=== PATIENT | male | born 1980 | race Caucasian/White ===

== ENCOUNTER → 2018-07-26 08:16 | Outpatient (CLI) | payer OTHER, SELFPAY ==
[2018-07-26 09:13] LABS: Alanine Aminotransferase 32 IU/L (21-72); Albumin 4.6 g/dL (3.5-5.0); Albumin Globulin Ratio 1.8 (1.0-2.8); Alkaline Phosphatase 41 U/L (38-126); Aspartate Aminotransferase 32 IU/L (17-59); BUN Creatinine Ratio 15.6 (6-22); Bilirubin Total 2.4 mg/dL (0.2-1.3); Blood Urea Nitrogen 14 mg/dL (9-20); Calcium 9.5 mg/dL (8.4-10.2); Carbon Dioxide 32 mmol/L (22-32); Chloride 103 mmol/L (98-107); Cholesterol 184 mg/dL (140-199); Estimated Glomerular Filt Rate > 60.0 mL/min (>60); Globulin 2.5 g/dL (1.7-4.1); Glucose 90 mg/dL (70-100); HDL Cholesterol 60 mg/dL (40-60); HEMOLYSIS < 15 (0-50); LDL Cholesterol Calculated 110 mg/dL (<100); Potassium 4.5 mmol/L (3.4-5.1); Sodium 144 mmol/L (137-145); Total Protein 7.1 g/dL (6.3-8.2); Triglycerides 69 mg/dL (35-150)
[2018-07-26 09:55] LABS: Free T4, Direct Thyroxine 1.42 ng/dL (0.78-2.19)
[2018-07-26 10:08] LABS: Thyroid Stimulating Hormone 0.39 uIU/mL (0.47-4.68)
== END ==
PROVIDERS: Family Provider Physician Assistant; PCP Physician Assistant; Visit Provider Physician Assistant
DX: I10 Essential (primary) hypertension (principal); E03.9 Hypothyroidism, unspecified
CPT/HCPCS: 36415; 80053; 80061; 84439; 84443

== ENCOUNTER → 2018-08-11 11:00 | Outpatient (CLI) | payer OTHER, SELFPAY | PROVIDERS: Family Provider Physician Assistant; PCP Physician Assistant | DX: Z23 Encounter for immunization (principal) | CPT/HCPCS: 90471; 90686 ==

== ENCOUNTER → 2019-03-07 08:28 | Outpatient (CLI) | payer OTHER, SELFPAY ==
[2019-03-07 10:02] LABS: Thyroid Stimulating Hormone 0.59 uIU/mL (0.47-4.68)
== END ==
PROVIDERS: Family Provider Physician Assistant; PCP Physician Assistant; Visit Provider Physician Assistant
DX: E03.9 Hypothyroidism, unspecified (principal)
CPT/HCPCS: 36415; 84443

== ENCOUNTER → 2019-08-30 11:57 | Outpatient (CLI) | payer OTHER, SELFPAY | PROVIDERS: PCP Physician Assistant | DX: Z23 Encounter for immunization (principal) | CPT/HCPCS: 90471; 90686 ==

== ENCOUNTER 2020-04-16 03:08 | Emergency (ER) | payer OTHER, SELFPAY ==
[2020-04-16] VITALS (34 sets, daily range): BP systolic 121–151; BP diastolic 68–100; PULSE 59–89; RESP 15–30; TEMP 36.7; O2SAT 97–99; BMI 25.0
--- NOTE | 2020-04-16 03:10 | ED.CHESTPAIN ---
HPI - Chest Pain <Fadi AlfordDO linwood - Last Filed: 04/19/20 01:03> General Chief Complaint: Chest Pain Stated Complaint: chest pain Time Seen by Provider: 04/16/20 03:09 Source: patient Mode of arrival: Ambulatory Limitations: no limitations History of Present Illness HPI narrative: 40M nonsmoker with history of essential HTN, hypothyroid, and thoracic outlet syndrome presents with anterior and retrosternal chest pressure and squeezing tightness that started a few hours prior to his arrival, perhaps as early as 11:30 p.m.. He states that he has had scenarios in the past where falling asleep in certain positions can irritate his thoracic outlet syndrome and present initially like this but usually will resolve with vigorous stretching and some time. It is never been this intense nor persistent. He denies any symptoms otherwise over the course of the day and felt in his normal state of health when he went to bed. He denies recent travel or injury. He denies any over exertional activities and states that he has no symptoms despite vigorous exercise frequently. He has had no runny nose, sore throat or cough. He denies nausea, vomiting or diarrhea. He feels increasingly short of breath. He denies any radiation of his discomfort. MD complaint: chest pain Onset (ago): hour(s) Duration: constant Onset: during rest Pain location: substernal Severity: moderate Quality: tightness and heaviness Pain radiation: none Relieving factors: nothing Exacerbating factors: nothing Associated symptoms: dyspnea Treatments prior to arrival chest pain: none Related Data Home Medications Medication Instructions Recorded Confirmed silver sulfadiazine 1 % topical 1 applictn TOP BID PRN gram 05/18/19 04/12/20 cream triamcinolone acetonide 0.1 % 1 applictn TOP BID PRN gram 05/18/19 04/12/20 topical ointment Previous Rx's Medication Instructions Recorded Synthroid 150 mcg tablet 150 mcg PO QAM #90 tab NS 11/06/19 amlodipine 5 mg tablet 5 mg PO QDAY #90 tab 11/06/19 methocarbamol 500 mg tablet 500 mg PO DAILY PRN #90 tab 04/12/20 colchicine 0.6 mg PO BID 90 Days #180 cap 04/16/20 Allergies Allergy/AdvReac Type Severity Reaction Status Date / Time No Known Drug Allergies Allergy Verified 04/12/20 09:31 Review of Systems <Fadi Valadez DO - Last Filed: 04/19/20 01:03> Constitutional Constitutional: Denies chills, Denies fatigue, Denies fever(s), Denies frequent falls, Denies lethargy and Denies weakness Eyes Eyes: Denies change in vision, Denies eye discharge, Denies irritation and Denies loss of vision ENT Ears, Nose, Mouth, and Throat: Denies change in voice, Denies dizziness, Denies neck pain, Denies sore throat and Denies throat swelling Cardiovascular Cardiovascular: Reports chest pain, Denies irregular heart rhythm, Denies lightheadedness, Denies palpitations, Reports dyspnea, Reports dyspnea on exertion and Denies orthopnea Respiratory Respiratory: Denies cough, Reports dyspnea, Reports dyspnea on exertion and Denies wheezing Gastrointestinal Gastrointestinal: Denies abdominal pain, Denies change in bowel habits, Denies diarrhea, Denies nausea and Denies vomiting Genitourinary Genitourinary: Denies hematuria, Denies flank pain, Denies urinary incontinence and Denies urinary urgency Musculoskeletal Musculoskeletal: Denies back pain, Denies muscle weakness, Denies neck pain, Denies numbness and Denies tingling Integumentary/Breasts Skin/Breast: Denies pruritus, Denies erythema, Denies rash and Denies wounds Neurologic Neurologic: Denies behavioral changes, Denies confusion, Denies dizziness, Denies frequent falls, Denies loss of vision, Denies numbness, Denies tingling and Denies weakness Psychiatric Psychiatric: Denies anxiety, Denies behavioral changes, Denies confusion, Denies depression, Denies homicidal ideation and Denies suicidal ideation Endocrine Endocrine: Denies fatigue, Denies flushing and Denies palpitations Hematologic/Lymphatic Hematologic/Lymphatic: Denies easy bruising Allergic/Immunologic Allergic/Immunologic: Denies urticaria, Denies throat swelling and Denies wheezing Patient History <Fadi Valadez DO - Last Filed: 04/19/20 01:03> Social History Smoking Status: Never smoker second hand exposure: No alcohol intake: current (Beer about 4x a week) substance use type: does not use Smoking Status: Never smoker Exam <Fadi Valadez DO - Last Filed: 04/19/20 01:03> Narrative Exam Narrative: GENERAL: [40] year old patient appears stated age. Well-nourished, well-developed patient, in mild distress. Visibly anxious, some difficulty completing full sentences HEAD: Atraumatic. Normocephalic. EYES: Pupils equal round and reactive. Extraocular motions intact. No scleral icterus. No injection or drainage. ENT: Nose without bleeding, purulent drainage. Throat without erythema, tonsillar hypertrophy or exudate. Airway patent. NECK: Trachea midline. Non tender CARDIOVASCULAR: Regular rate and rhythm without murmurs, gallops, or rubs. RESPIRATORY: Clear to auscultation. Breath sounds equal bilaterally. No wheezes, rales, or rhonchi. GASTROINTESTINAL: Abdomen soft, non-tender, nondistended. EXTREMITIES: No edema or joint tenderness. BACK: Nontender without deformity or crepitance. No flank tenderness. NEURO: AOx3. SKIN: No rash or erythema of visible areas Initial Vital Signs Initial Vital Signs: Vital Signs Temperature 98.1 F 04/16/20 03:12 Pulse Rate 82 04/16/20 03:12 Respiratory Rate 18 04/16/20 03:12 Blood Pressure 151/100 H 04/16/20 03:12 Pulse Oximetry 98 04/16/20 03:12 <Hector Garcia DO - Last Filed: 04/16/20 13:39> Initial Vital Signs Initial Vital Signs: Vital Signs Temperature 98.1 F 04/16/20 03:12 Pulse Rate 82 04/16/20 03:12 Respiratory Rate 18 04/16/20 03:12 Blood Pressure 151/100 H 04/16/20 03:12 Pulse Oximetry 98 04/16/20 03:12 Course <Fadi Valadez DO - Last Filed: 04/19/20 01:03> Course Course Narrative: patient case/plan discussed with Dr. Garcia and he will assume care and coordinate final disposition. Orders Ordered: Discontinued Medications Colchicine (Colcrys) 0.6 mg PO NOW ONE Stop: 04/16/20 06:08 Last Admin: 04/16/20 06:56 Dose: 0.6 mg Documented by: FRIEDA [place] Hydrox/Mg Hydrox/Simethicone 20 ml/ Lidocaine HCl 15 ml 0 ml PO NOW ONE Stop: 04/16/20 04:11 Last Admin: 04/16/20 05:39 Dose: 35 ml Documented by: FRIEDA Sodium Chloride (Normal Saline 0.9%) 1,000 mls @ 150 mls/hr IV CONT APRIL Last Infusion: 04/16/20 11:42 Dose: 0 mls/hr Documented by: Admin: 04/16/20 03:40 Dose: 150 mls/hr Documented by: FRIEDA Ketorolac Tromethamine (Toradol) 15 mg IV NOW ONE Stop: 04/16/20 03:28 Last Admin: 04/16/20 03:39 Dose: 15 mg Documented by: FRIEDA Nitroglycerin (Nitrostat) 0.4 mg SL [id number] PRN PRN Reason: Chest Pain Last Admin: 04/16/20 03:49 Dose: 0.4 mg Documented by: Admin: 04/16/20 03:41 Dose: 0.4 mg Documented by: FRIEDA Consultations Consultation #1: call to cardio to review case. Likely pericarditis, Dr. Almeida will help coordinate echo in ED, if normal then treat for pericarditis, if not then admit vs. transfer Vital Signs Vital signs: Vital Signs - 8 hr 04/16/20 05:43 04/16/20 05:50 04/16/20 06:00 Pulse Rate 76 72 73 Respiratory Rate 30 H 25 H 26 H Blood Pressure Blood Pressure [Right Arm] 137/76 143/86 H 147/87 H Pulse Oximetry 99 99 99 04/16/20 06:10 04/16/20 06:20 04/16/20 06:30 Pulse Rate 67 70 70 Respiratory Rate 20 20 22 Blood Pressure Blood Pressure [Right Arm] 140/80 140/79 144/84 H Pulse Oximetry 97 97 97 04/16/20 06:40 04/16/20 06:50 04/16/20 07:00 Pulse Rate 74 67 68 Respiratory Rate 17 20 20 Blood Pressure Blood Pressure [Right Arm] 143/85 H 141/80 H 141/85 H Pulse Oximetry 97 97 97 04/16/20 07:10 04/16/20 07:20 04/16/20 07:30 Pulse Rate 68 70 69 Respiratory Rate 20 19 15 Blood Pressure Blood Pressure [Right Arm] 145/80 H 138/76 142/78 H Pulse Oximetry 97 97 97 04/16/20 07:40 04/16/20 07:50 04/16/20 08:00 Pulse Rate 69 68 73 Respiratory Rate 21 20 22 Blood Pressure Blood Pressure [Right Arm] 139/77 140/78 121/68 Pulse Oximetry 97 98 97 04/16/20 09:00 04/16/20 09:10 04/16/20 09:20 Pulse Rate 72 70 72 Respiratory Rate 16 23 23 Blood Pressure Blood Pressure [Right Arm] 137/81 141/78 H 142/84 H Pulse Oximetry 98 99 04/16/20 09:30 04/16/20 09:40 04/16/20 09:50 Pulse Rate 64 64 59 L Respiratory Rate 20 19 16 Blood Pressure Blood Pressure [Right Arm] 128/79 130/74 137/74 Pulse Oximetry 99 98 97 04/16/20 10:00 04/16/20 10:10 04/16/20 10:20 Pulse Rate 65 65 62 Respiratory Rate 19 17 20 Blood Pressure Blood Pressure [Right Arm] 134/74 135/76 138/74 Pulse Oximetry 97 97 97 04/16/20 10:30 04/16/20 11:16 04/16/20 12:52 Pulse Rate 61 63 67 Respiratory Rate 17 21 19 Blood Pressure Blood Pressure [Right Arm] 134/71 140/81 140/85 Pulse Oximetry 97 99 97 04/16/20 13:01 Pulse Rate 65 Respiratory Rate 16 Blood Pressure 144/92 H Blood Pressure [Right Arm] Pulse Oximetry 98 <Hector Garcia DO - Last Filed: 04/16/20 13:39> Orders Ordered: Discontinued Medications Colchicine (Colcrys) 0.6 mg PO NOW ONE Stop: 04/16/20 06:08 Last Admin: 04/16/20 06:56 Dose: 0.6 mg Documented by: FRIEDA Al Hydrox/Mg Hydrox/Simethicone 20 ml/ Lidocaine HCl 15 ml 0 ml PO NOW ONE Stop: 04/16/20 04:11 Last Admin: 04/16/20 05:39 Dose: 35 ml Documented by: FRIEDA Sodium Chloride (Normal Saline 0.9%) 1,000 mls @ 150 mls/hr IV CONT APRIL Last Infusion: 04/16/20 11:42 Dose: 0 mls/hr Documented by: Admin: 04/16/20 03:40 Dose: 150 mls/hr Documented by: FRIEDA Ketorolac Tromethamine (Toradol) 15 mg IV NOW ONE Stop: 04/16/20 03:28 Last Admin: 04/16/20 03:39 Dose: 15 mg Documented by: FRIEDA Nitroglycerin (Nitrostat) 0.4 mg SL [id number] PRN PRN Reason: Chest Pain Last Admin: 04/16/20 03:49 Dose: 0.4 mg Documented by: Admin: 04/16/20 03:41 Dose: 0.4 mg Documented by: FRIEDA Vital Signs Vital signs: Vital Signs - 8 hr 04/16/20 05:43 04/16/20 05:50 04/16/20 06:00 Pulse Rate 76 72 73 Respiratory Rate 30 H 25 H 26 H Blood Pressure Blood Pressure [Right Arm] 137/76 143/86 H 147/87 H Pulse Oximetry 99 99 99 04/16/20 06:10 04/16/20 06:20 04/16/20 06:30 Pulse Rate 67 70 70 Respiratory Rate 20 20 22 Blood Pressure Blood Pressure [Right Arm] 140/80 140/79 144/84 H Pulse Oximetry 97 97 97 04/16/20 06:40 04/16/20 06:50 04/16/20 07:00 Pulse Rate 74 67 68 Respiratory Rate 17 20 20 Blood Pressure Blood Pressure [Right Arm] 143/85 H 141/80 H 141/85 H Pulse Oximetry 97 97 97 04/16/20 07:10 04/16/20 07:20 04/16/20 07:30 Pulse Rate 68 70 69 Respiratory Rate 20 19 15 Blood Pressure Blood Pressure [Right Arm] 145/80 H 138/76 142/78 H Pulse Oximetry 97 97 97 04/16/20 07:40 04/16/20 07:50 04/16/20 08:00 Pulse Rate 69 68 73 Respiratory Rate 21 20 22 Blood Pressure Blood Pressure [Right Arm] 139/77 140/78 121/68 Pulse Oximetry 97 98 97 04/16/20 09:00 04/16/20 09:10 04/16/20 09:20 Pulse Rate 72 70 72 Respiratory Rate 16 23 23 Blood Pressure Blood Pressure [Right Arm] 137/81 141/78 H 142/84 H Pulse Oximetry 98 99 04/16/20 09:30 04/16/20 09:40 04/16/20 09:50 Pulse Rate 64 64 59 L Respiratory Rate 20 19 16 Blood Pressure Blood Pressure [Right Arm] 128/79 130/74 137/74 Pulse Oximetry 99 98 97 04/16/20 10:00 04/16/20 10:10 04/16/20 10:20 Pulse Rate 65 65 62 Respiratory Rate 19 17 20 Blood Pressure Blood Pressure [Right Arm] 134/74 135/76 138/74 Pulse Oximetry 97 97 97 04/16/20 10:30 04/16/20 11:16 04/16/20 12:52 Pulse Rate 61 63 67 Respiratory Rate 17 21 19 Blood Pressure Blood Pressure [Right Arm] 134/71 140/81 140/85 Pulse Oximetry 97 99 97 04/16/20 13:01 Pulse Rate 65 Respiratory Rate 16 Blood Pressure 144/92 H Blood Pressure [Right Arm] Pulse Oximetry 98 MDM - Chest Pain <Fadi Valadez DO - Last Filed: 04/19/20 01:03> Lab Data Result diagrams: 04/16/20 03:25 04/16/20 03:25 Labs: Lab Results 04/16/20 04/16/20 04/16/20 Range/Units 03:25 03:25 03:25 WBC 8.3 (4.5-11.0) X10^3/uL RBC 5.05 (4.5-5.9) X10^6/uL Hgb 16.8 (13.5-17.5) g/dL Hct 46.9 (41-53) % MCV 93.0 (80-100) fL MCH 33.3 (26-34) PG MCHC 35.8 (30-36) % RDW 12.4 (11.6-14.8) % Plt Count 163 (150-400) X10^3/uL Neut % (Auto) 66.6 (50-75) % Lymph % (Auto) 21.7 L (25-40) % [place] % (Auto) 8.7 (3-14) % Eos % (Auto) 2.6 (2-4) % Baso % (Auto) 0.4 (0-2) % Neut # (Auto) 5500 (9534-5352) /uL Lymph # (Auto) 1800 (2167-9027) /uL [place] # (Auto) 700 (0-900) /uL Eos # (Auto) 200 (0-450) /uL Baso # (Auto) 0 (0-100) /uL ESR (0-15) MM/HR D-Dimer < 200 (<230) ng/mL Sodium 139 (137-145) mmol/L Potassium 4.2 (3.4-5.1) mmol/L Chloride 102 (98-107) mmol/L Carbon Dioxide 29 (22-32) mmol/L BUN 16 (9-20) mg/dL Creatinine 0.96 (0.66-1.25) mg/dL Estimated GFR > 60.0 (>60) mL/min BUN/Creatinine Ratio 16.7 (6-22) Glucose 103 H (70-100) mg/dL Calcium 9.2 (8.4-10.2) mg/dL Total Bilirubin 1.6 H (0.2-1.3) mg/dL AST 38 (17-59) IU/L ALT 26 (<50) IU/L Alkaline Phosphatase 41 (38-126) U/L Total Creatine Kinase 220 H (55-170) U/L CK-MB (CK-2) 2.53 H (<2.37) ng/mL CK-MB (CK-2) Rel Index 1.2 L (1.5-5.0) % Troponin I < 0.012 (0.01-0.034) ng/mL C-Reactive Protein (<1.0) mg/dL Total Protein 7.4 (6.3-8.2) g/dL Albumin 4.8 (3.5-5.0) g/dL Globulin 2.6 (1.7-4.1) g/dL Albumin/Globulin Ratio 1.8 (1.0-2.8) Lipase 135 (23-300) U/L 04/16/20 04/16/20 04/16/20 Range/Units 05:23 09:19 09:19 WBC (4.5-11.0) X10^3/uL RBC (4.5-5.9) X10^6/uL Hgb (13.5-17.5) g/dL Hct (41-53) % MCV (80-100) fL MCH (26-34) PG MCHC (30-36) % RDW (11.6-14.8) % Plt Count (150-400) X10^3/uL Neut % (Auto) (50-75) % Lymph % (Auto) (25-40) % [place] % (Auto) (3-14) % Eos % (Auto) (2-4) % Baso % (Auto) (0-2) % Neut # (Auto) (9577-0108) /uL Lymph # (Auto) (2628-7171) /uL [place] # (Auto) (0-900) /uL Eos # (Auto) (0-450) /uL Baso # (Auto) (0-100) /uL ESR 1 (0-15) MM/HR D-Dimer (<230) ng/mL Sodium (137-145) mmol/L Potassium (3.4-5.1) mmol/L Chloride (98-107) mmol/L Carbon Dioxide (22-32) mmol/L BUN (9-20) mg/dL Creatinine (0.66-1.25) mg/dL Estimated GFR (>60) mL/min BUN/Creatinine Ratio (6-22) Glucose (70-100) mg/dL Calcium (8.4-10.2) mg/dL Total Bilirubin (0.2-1.3) mg/dL AST (17-59) IU/L ALT (<50) IU/L Alkaline Phosphatase (38-126) U/L Total Creatine Kinase (55-170) U/L CK-MB (CK-2) (<2.37) ng/mL CK-MB (CK-2) Rel Index (1.5-5.0) % Troponin I < 0.012 (0.01-0.034) ng/mL C-Reactive Protein < 0.5 (<1.0) mg/dL Total Protein (6.3-8.2) g/dL Albumin (3.5-5.0) g/dL Globulin (1.7-4.1) g/dL Albumin/Globulin Ratio (1.0-2.8) Lipase (23-300) U/L // Range/Units 09:19 WBC (4.5-11.0) X10^3/uL RBC (4.5-5.9) X10^6/uL Hgb (13.5-17.5) g/dL Hct (41-53) % MCV (80-100) fL MCH (26-34) PG MCHC (30-36) % RDW (11.6-14.8) % Plt Count (150-400) X10^3/uL Neut % (Auto) (50-75) % Lymph % (Auto) (25-40) % [place] % (Auto) (3-14) % Eos % (Auto) (2-4) % Baso % (Auto) (0-2) % Neut # (Auto) (6206-4298) /uL Lymph # (Auto) (0807-0667) /uL [place] # (Auto) (0-900) /uL Eos # (Auto) (0-450) /uL Baso # (Auto) (0-100) /uL ESR (0-15) MM/HR D-Dimer (<230) ng/mL Sodium (137-145) mmol/L Potassium (3.4-5.1) mmol/L Chloride (98-107) mmol/L Carbon Dioxide (22-32) mmol/L BUN (9-20) mg/dL Creatinine (0.66-1.25) mg/dL Estimated GFR (>60) mL/min BUN/Creatinine Ratio (6-22) Glucose (70-100) mg/dL Calcium (8.4-10.2) mg/dL Total Bilirubin (0.2-1.3) mg/dL AST (17-59) IU/L ALT (<50) IU/L Alkaline Phosphatase (38-126) U/L Total Creatine Kinase (55-170) U/L CK-MB (CK-2) (<2.37) ng/mL CK-MB (CK-2) Rel Index (1.5-5.0) % Troponin I < 0.012 (0.01-0.034) ng/mL C-Reactive Protein (<1.0) mg/dL Total Protein (6.3-8.2) g/dL Albumin (3.5-5.0) g/dL Globulin (1.7-4.1) g/dL Albumin/Globulin Ratio (1.0-2.8) Lipase (23-300) U/L Imaging Data Chest x-ray: My Impression: no acute process CT scan - chest: Radiologist's Impression: No PE or dissection. No pneumonia. Trace pericardial effusion ECG Data Attestation: I personally reviewed and interpreted this ECG as follows: Prior ECG tracings: not available for review Interpretation: 1. NSR. No ectopy. Mild interventricular conduction delay. T Wave inversion Lead III. 2. No change 3. NSR. No Ectopy. Minimal ST elevations widespread with associated AK depressions consistent with pericarditis <Hector Garcia DO - Last Filed: 04/16/20 13:39> Lab Data Labs: Lab Results 04/16/20 04/16/20 04/16/20 Range/Units 03:25 03:25 03:25 WBC 8.3 (4.5-11.0) X10^3/uL RBC 5.05 (4.5-5.9) X10^6/uL Hgb 16.8 (13.5-17.5) g/dL Hct 46.9 (41-53) % MCV 93.0 (80-100) fL MCH 33.3 (26-34) PG MCHC 35.8 (30-36) % RDW 12.4 (11.6-14.8) % Plt Count 163 (150-400) X10^3/uL Neut % (Auto) 66.6 (50-75) % Lymph % (Auto) 21.7 L (25-40) % [place] % (Auto) 8.7 (3-14) % Eos % (Auto) 2.6 (2-4) % Baso % (Auto) 0.4 (0-2) % Neut # (Auto) 5500 (7391-3362) /uL Lymph # (Auto) 1800 (5469-7919) /uL [place] # (Auto) 700 (0-900) /uL Eos # (Auto) 200 (0-450) /uL Baso # (Auto) 0 (0-100) /uL ESR (0-15) MM/HR D-Dimer < 200 (<230) ng/mL Sodium 139 (137-145) mmol/L Potassium 4.2 (3.4-5.1) mmol/L Chloride 102 (98-107) mmol/L Carbon Dioxide 29 (22-32) mmol/L BUN 16 (9-20) mg/dL Creatinine 0.96 (0.66-1.25) mg/dL Estimated GFR > 60.0 (>60) mL/min BUN/Creatinine Ratio 16.7 (6-22) Glucose 103 H (70-100) mg/dL Calcium 9.2 (8.4-10.2) mg/dL Total Bilirubin 1.6 H (0.2-1.3) mg/dL AST 38 (17-59) IU/L ALT 26 (<50) IU/L Alkaline Phosphatase 41 (38-126) U/L Total Creatine Kinase 220 H (55-170) U/L CK-MB (CK-2) 2.53 H (<2.37) ng/mL CK-MB (CK-2) Rel Index 1.2 L (1.5-5.0) % Troponin I < 0.012 (0.01-0.034) ng/mL C-Reactive Protein (<1.0) mg/dL Total Protein 7.4 (6.3-8.2) g/dL Albumin 4.8 (3.5-5.0) g/dL Globulin 2.6 (1.7-4.1) g/dL Albumin/Globulin Ratio 1.8 (1.0-2.8) Lipase 135 (23-300) U/L 04/16/20 04/16/20 04/16/20 Range/Units 05:23 09:19 09:19 WBC (4.5-11.0) X10^3/uL RBC (4.5-5.9) X10^6/uL Hgb (13.5-17.5) g/dL Hct (41-53) % MCV (80-100) fL MCH (26-34) PG MCHC (30-36) % RDW (11.6-14.8) % Plt Count (150-400) X10^3/uL Neut % (Auto) (50-75) % Lymph % (Auto) (25-40) % [place] % (Auto) (3-14) % Eos % (Auto) (2-4) % Baso % (Auto) (0-2) % Neut # (Auto) (8818-3163) /uL Lymph # (Auto) (9934-5108) /uL [place] # (Auto) (0-900) /uL Eos # (Auto) (0-450) /uL Baso # (Auto) (0-100) /uL ESR 1 (0-15) MM/HR D-Dimer (<230) ng/mL Sodium (137-145) mmol/L Potassium (3.4-5.1) mmol/L Chloride (98-107) mmol/L Carbon Dioxide (22-32) mmol/L BUN (9-20) mg/dL Creatinine (0.66-1.25) mg/dL Estimated GFR (>60) mL/min BUN/Creatinine Ratio (6-22) Glucose (70-100) mg/dL Calcium (8.4-10.2) mg/dL Total Bilirubin (0.2-1.3) mg/dL AST (17-59) IU/L ALT (<50) IU/L Alkaline Phosphatase (38-126) U/L Total Creatine Kinase (55-170) U/L CK-MB (CK-2) (<2.37) ng/mL CK-MB (CK-2) Rel Index (1.5-5.0) % Troponin I < 0.012 (0.01-0.034) ng/mL C-Reactive Protein < 0.5 (<1.0) mg/dL Total Protein (6.3-8.2) g/dL Albumin (3.5-5.0) g/dL Globulin (1.7-4.1) g/dL Albumin/Globulin Ratio (1.0-2.8) Lipase (23-300) U/L 04/16/20 Range/Units 09:19 WBC (4.5-11.0) X10^3/uL RBC (4.5-5.9) X10^6/uL Hgb (13.5-17.5) g/dL Hct (41-53) % MCV (80-100) fL MCH (26-34) PG MCHC (30-36) % RDW (11.6-14.8) % Plt Count (150-400) X10^3/uL Neut % (Auto) (50-75) % Lymph % (Auto) (25-40) % [place] % (Auto) (3-14) % Eos % (Auto) (2-4) % Baso % (Auto) (0-2) % Neut # (Auto) (4855-0861) /uL Lymph # (Auto) (8913-5109) /uL [place] # (Auto) (0-900) /uL Eos # (Auto) (0-450) /uL Baso # (Auto) (0-100) /uL ESR (0-15) MM/HR D-Dimer (<230) ng/mL Sodium (137-145) mmol/L Potassium (3.4-5.1) mmol/L Chloride (98-107) mmol/L Carbon Dioxide (22-32) mmol/L BUN (9-20) mg/dL Creatinine (0.66-1.25) mg/dL Estimated GFR (>60) mL/min BUN/Creatinine Ratio (6-22) Glucose (70-100) mg/dL Calcium (8.4-10.2) mg/dL Total Bilirubin (0.2-1.3) mg/dL AST (17-59) IU/L ALT (<50) IU/L Alkaline Phosphatase (38-126) U/L Total Creatine Kinase (55-170) U/L CK-MB (CK-2) (<2.37) ng/mL CK-MB (CK-2) Rel Index (1.5-5.0) % Troponin I < 0.012 (0.01-0.034) ng/mL C-Reactive Protein (<1.0) mg/dL Total Protein (6.3-8.2) g/dL Albumin (3.5-5.0) g/dL Globulin (1.7-4.1) g/dL Albumin/Globulin Ratio (1.0-2.8) Lipase (23-300) U/L Imaging Data echo: Radiologist's Impression: [address] [address] Echocardiography Report Signed Patient: Varinder Mcintosh JMR#: [id number] : 1980Acct:[id number] Age/Sex: 40 / MDate of Service: 04/16/20 Loc: ED Accession Number: [id number] Procedure: EC echo doppler complete Ordering Provider: Fadi Valadez D.O. [place] +---------+ [facility] +---------+ : : [address] [place] [address]. : : : : Marita JULIO : : : : [id number] : : : : Phone: [phone] Echocardiogram Report + + :Name: VARINDER MCINTOSH Study Date: 04/16/2020 Height: 68 in : :[facility] Weight: 165 lb : : Gender: Male BSA: 1.9 m2 : :: 1980 Age: 40 yrs BP: 121/68 mmHg: :Reason For Study: Chest pain/ Pericarditis : :Ordering Physician: [place] : :Hospitalist Performed By: Deyanira Still : :Referring: FADI VALADEZ : + + Interpretation Summary The left ventricle is normal in size and wall thickness. Left ventricular systolic function is normal without focal wall motion abnormalities. The ejection fraction is estimated to be 60-65%. Diastolic parameters suggest probable normal left ventricular diastolic function and normal filling pressures. The right ventricle is normal in size and function. The right ventricular systolic pressure is estimated to be at least 30 mmHg based on an estimated right atrial pressure of 8 mm Hg. Borderline left atrial enlargement. Right atrial size is normal. There is no significant valvular heart disease. The aortic root is normal size. No pericardial effusion noted. Procedure: A two-dimensional transthoracic echocardiogram with color flow and Doppler was performed. The study quality was technically adequate. Comparison is made with the echocardiogram of 12/20/2013. The patient was in normal sinus rhythm during the exam. The heart rate ranged between 68-78 bpm during the study. Left Ventricle: The left ventricle is normal in size and wall thickness. Left ventricular systolic function is normal without focal wall motion abnormalities. The ejection fraction is estimated to be 60-65%. Diastolic parameters suggest probable normal left ventricular diastolic function and normal filling pressures. Right Ventricle: The right ventricle is normal in size and function. Atria: Borderline left atrial enlargement. Right atrial size is normal. The interatrial septum is intact with no evidence for an atrial septal defect. Mitral Valve: The mitral valve is normal in structure and function. There is no mitral regurgitation noted. Aortic Valve: The aortic valve is trileaflet. The aortic valve opens well. There is no aortic valve stenosis. No aortic regurgitation is present. Tricuspid Valve: The tricuspid valve is normal in structure and function. There is mild tricuspid regurgitation. The right ventricular systolic pressure is estimated to be at least 30 mmHg based on an estimated right atrial pressure of 8 mm Hg. Pulmonic Valve: The pulmonic valve is normal in structure and function. There is no pulmonic valvular regurgitation. There is no significant valvular heart disease. Great Vessels: The aortic root is normal size. The ascending aorta is normal in size. The IVC is dilated (diameter is greater than 2.1 cm) yet it collapses greater than 50% with a sniff. This suggests a right atrial pressure of 8 mm Hg. Pericardium/ Pleura There is no pericardial effusion. There has been no significant change since the previous study. MMode/2D Measurements & Calculations LVIDd: 5.3 cm LVOT diam: 2.5 cm LVIDs: 3.6 cm Ao root diam: 3.3 cm FS: 32.6 % Ao Arch Diam (Prox Trans): 3.1 cm EPSS: 0.61 cm IVSd: 0.82 cm LVPWd: 0.79 cm LV vickers. diameter/BSA (cm/m^2): 2.8 LV sys. diameter/BSA (cm/m^2): 1.9 LA A2 area: 21.7 cm2 RA long axis: 4.7 cm LA A4 area: 17.0 cm2 RA area: 14.5 cm2 LA length (vol): 4.9 cm RA vol: 38.0 ml LA vol: 64.5 ml RA : 20.2 ml/m2 LA vol index: 34.3 ml/m2 IVC diam: 2.2 cm RVD1 (basal): 3.5 cm TAPSE: 2.0 cm Doppler Measurements & Calculations Ao V2 max: 134.6 cm/sec LVOT Max Matthew: 112.5 cm/sec Ao V2 mean: 87.0 cm/sec LV V1 max P.1 mmHg Ao max P.2 mmHg LV V1 VTI: 24.7 cm Ao mean P.5 mmHg VIET(I,D): 4.5 cm2 Ao V2 VTI: 27.7 cm VIET(V,D): 4.2 cm2 sev ratio: 0.89 VIET indexed to BSA (cm^2/m^2): 2.4 MV E max matthew: 59.7 cm/sec TR max matthew: 232.8 cm/sec MV A max matthew: 55.9 cm/sec TR max P.7 mmHg MV E/A: 1.1 PA V2 max: 102.0 cm/sec Med Peak E' Matthew: 10.6 cm/sec PA V2 mean: 68.3 cm/sec E/E' med: 5.6 PA mean P.2 mmHg Lat Peak E' Matthew: 16.7 cm/sec PA Accel Time: 0.14 sec E/E' lat: 3.6 E/e' average: 4.6 MV dec time: 0.23 sec SV(LVOT): 123.9 ml Reading Physician:12:40 PM MDM Narrative Medical decision making narrative: Dr garcia: Received turned over from Dr. Valadez. Review patient's history and physical. Review patient's lab work and radiologic studies. Perform my own history and physical exam. Patient's 3rd troponin negative. He S are and CRP unremarkable. Patient received a echocardiogram and this was read by cardiology as unremarkable. This was the same loom operator apprentice that Dr. Valadez discuss the patient's case with overnight. Do have low suspicion for ACS. This is given his EKG findings, low risk heart score and 3-troponins. CT of his chest does not show any signs of pneumonia. No signs of pulmonary embolism. Discussed the potential for pericarditis with the loom operator apprentice. He states that despite unremarkable lab test, EKG findings not consistent with pericarditis and no issues on his CT scan patient still potentially could have this diagnosis. He did seem to get somewhat better after the Toradol and the colchicine. Plan will be is to put him on anti-inflammatories for the next 3 weeks and colchicine for the next 3 months for presumed pericarditis. I discussed this with the patient. We did discuss return precautions and follow-up instructions. He expressed understanding and agreement. Discharge Plan Departure Patient Disposition: Home Clinical Impression: Atypical chest pain Pericarditis Qualifiers: Pericarditis type: unspecified type Chronicity: unspecified Qualified Code(s): I31.9 - Disease of pericardium, unspecified Discharge Date/Time: 04/16/20 13:01 Instructions: Pericarditis -- Adult Activity Restrictions/Additional Instructions: Like we discussed we are presumptively treating you for pericarditis. Recommend that you purchase Motrin/ibuprofen [id number]. These are 200 mg tablets. Recommend that you take 600 mg (3 tablets) 3 times a day for 1 week. Then take 400 mg (2 tablets) 2 times a day for 1 week then 200 mg (1 tablet) 2 times a day for 1 week. I do recommend that you take these with food. Also recommend that you start taking an acid merchandiser like we discussed. Also recommend that you start taking the colchicine as directed. This was electronically transmitted to [facility]. Contact your primary provider for follow-up. Return to the emergency department for any new or worsening symptoms. There are no issues with taking colchicine with the rest of your medications Prescriptions: New colchicine 0.6 mg capsule 0.6 mg PO BID 90 Days Qty: 180 RF: 0 No Action silver sulfadiazine 1 % cream 1 applictn TOP BID PRNRF: 0 triamcinolone acetonide 0.1 % ointment 1 applictn TOP BID PRNRF: 0 levothyroxine [Synthroid] 150 mcg tablet 150 mcg PO QAM Qty: 90 RF: 3 amlodipine [Norvasc] 5 mg tablet 5 mg PO QDAY Qty: 90 RF: 3 methocarbamol 500 mg tablet 500 mg PO DAILY PRN (Reason: muscle spasm) Qty: 90 RF: 3 Referrals: Maribel Head PA-C [Primary Care Provider] - Stand Alone Forms: Work Release Note
--- NOTE | 2020-04-16 03:27 | DI.RAD.S_ITS ---
PROCEDURE: XR CHEST 1V INDICATIONS: Chest Pain, shortness of breath TECHNIQUE: One view of the chest was acquired. COMPARISON: None. FINDINGS: Surgical changes and devices: None. Lungs and pleura: Lungs are clear. No pleural effusions or pneumothorax. Mediastinum: Mediastinal contours appear normal. Heart size is normal. Bones and chest wall: No suspicious bony lesions. Overlying soft tissues appear unremarkable. IMPRESSION: No acute cardiopulmonary disease process. Dictated by: Lou Shelby MD, PhD on 04/16/2020 at 7:53 Approved by: Lou Shelby MD, PhD on 04/16/2020 at 7:53
[2020-04-16] MEDS: KETOROLAC 60 MG/2 ML VIAL 15 MG IV (03:39)
[2020-04-16] MEDS: SODIUM CHLORIDE 0.9% 1,000 ML 150 ML IV (03:40)
[2020-04-16] MEDS: NITROGLYCERIN 0.4 MG SL TAB SL ×2 (03:41→03:49)
[2020-04-16 03:42] LABS: Alanine Aminotransferase 26 IU/L (<50); Albumin 4.8 g/dL (3.5-5.0); Albumin Globulin Ratio 1.8 (1.0-2.8); Alkaline Phosphatase 41 U/L (38-126); Aspartate Aminotransferase 38 IU/L (17-59); BUN Creatinine Ratio 16.7 (6-22); Bilirubin Total 1.6 mg/dL (0.2-1.3); Blood Urea Nitrogen 16 mg/dL (9-20); Calcium 9.2 mg/dL (8.4-10.2); Carbon Dioxide 29 mmol/L (22-32); Chloride 102 mmol/L (98-107); Creatine Kinase 220 U/L (55-170); Estimated Glomerular Filt Rate > 60.0 mL/min (>60); Globulin 2.6 g/dL (1.7-4.1); Glucose 103 mg/dL (70-100); HEMOLYSIS < 15 (0-50); Lipase 135 U/L (23-300); Potassium 4.2 mmol/L (3.4-5.1); Sodium 139 mmol/L (137-145); Total Protein 7.4 g/dL (6.3-8.2)
[2020-04-16 03:43] LABS: Add Manual Diff / Slide Review NO; Basophils Absolute Auto 0 /uL (0-100); Basophils Percent Auto 0.4 % (0-2); Eosinophils Absolute Auto 200 /uL (0-450); Eosinophils Percent Auto 2.6 % (2-4); Hematocrit 46.9 % (41-53); Hemoglobin 16.8 g/dL (13.5-17.5); Lymphocytes Absolute Auto 1800 /uL (1100-4500); Lymphocytes Percent Auto 21.7 % (25-40); Mean Corpuscular HGB Conc 35.8 % (30-36); Mean Corpuscular Hemoglobin 33.3 PG (26-34); Monocytes Absolute Auto 700 /uL (0-900); Monocytes Percent Auto 8.7 % (3-14); Neutrophils Absolute Auto 5500 /uL (1500-7000); Neutrophils Percent Auto 66.6 % (50-75); Platelet Count 163 X10^3/uL (150-400); Red Blood Cell Count 5.05 X10^6/uL (4.5-5.9); Red Cell Distribution Width 12.4 % (11.6-14.8); White Blood Cell Count 8.3 X10^3/uL (4.5-11.0)
[2020-04-16 03:46] LABS: D Dimer < 200 ng/mL (<230)
[2020-04-16 03:54] LABS: Troponin I < 0.012 ng/mL (0.01-0.034)
--- NOTE | 2020-04-16 03:54 | PC.NURSE ---
no change after two nitros, provider stated do not give third.
[2020-04-16 03:57] LABS: CKMB % Relative Index 1.2 % (1.5-5.0); Creatine Kinase MB 2.53 ng/mL (<2.37)
--- NOTE | 2020-04-16 04:10 | DI.CT.S_ITS ---
PROCEDURE: CT ANGIO CHEST PE PROTOCOL INDICATIONS: Chest pain, Shortness of breath, evidence of right heart strain on EKG TECHNIQUE: After the administration of intravenous contrast, 2 mm thick sections acquired from the pulmonary apices to the posterior costophrenic angles. 3-dimensional maximum intensity projection (MIP) coronal and sagittal reformats were then acquired through the thorax. For radiation dose reduction, the following was used: automated exposure control, adjustment of mA and/or kV according to patient size. COMPARISON: None. FINDINGS: Image quality: Excellent. Pulmonary arteries: Pulmonary arteries are normal in size, and demonstrate no intraluminal filling defects to suggest central pulmonary embolism. Lungs and pleura: Lungs are clear. No pleural effusions or pneumothorax. Central and peripheral airways are patent. Mediastinum: Heart size is normal, without pericardial effusion. No mediastinal or hilar adenopathy. Thoracic aorta is normal in caliber and enhancement. Esophagus is normal in caliber, without hiatal hernia. Bones and chest wall: No suspicious bony lesions. Ribs and thoracic spine appear intact throughout. Thyroid gland is atrophied. No axillary or supraclavicular adenopathy. Abdomen: Partially visualized 1.3 cm hypoattenuating lesion noted in the right lobe of the liver which may represent a cyst. Visualized upper abdominal solid organs otherwise appear normal in the early arterial phase of enhancement. IMPRESSION: No pulmonary embolus. Dictated by: Lou Shelby MD, PhD on 04/16/2020 at 7:39 Approved by: Lou Shelby MD, PhD on 04/16/2020 at 7:43
[2020-04-16] MEDS: MAG HYDROX/ALUMINUM/SIMETH SUS 20 ML, LIDOCAINE VISCOUS 2% 15 ML PO (05:39)
--- NOTE | 2020-04-16 05:47 | PC.NURSE ---
patient reports the pain in his chest is happen at a different spot during inspiration. He states it is easier to talk in full sentences. Provider asked and was given permission to transmit EKG images on his cell phone to sprinkler helper cell phone. This nurse was present during that conversation.
[2020-04-16 05:54] LABS: Troponin I < 0.012 ng/mL (0.01-0.034)
--- NOTE | 2020-04-16 06:00 | DI.ECHO.S_ITS ---
[facility]---------+ [facility] +---------+ : : [address] : : : : [id number] : : : : Phone: [phone]+ Echocardiogram Report + + :Name: YANET OBRIEN Study Date: 04/16/2020 Height: 68 in : :[facility] Weight: 165 lb : : Gender: Male BSA: 1.9 m2 : :: 1980 Age: 40 yrs BP: 121/68 mmHg: :Reason For Study: Chest pain/ Pericarditis : :Ordering Physician: Balwinder : :Hospitalist Performed By: Deyanira Still : :Referring: FADI SIBLEY : + + Interpretation Summary The left ventricle is normal in size and wall thickness. Left ventricular systolic function is normal without focal wall motion abnormalities. The ejection fraction is estimated to be 60-65%. Diastolic parameters suggest probable normal left ventricular diastolic function and normal filling pressures. The right ventricle is normal in size and function. The right ventricular systolic pressure is estimated to be at least 30 mmHg based on an estimated right atrial pressure of 8 mm Hg. Borderline left atrial enlargement. Right atrial size is normal. There is no significant valvular heart disease. The aortic root is normal size. No pericardial effusion noted. Procedure: A two-dimensional transthoracic echocardiogram with color flow and Doppler was performed. The study quality was technically adequate. Comparison is made with the echocardiogram of 12/20/2013. The patient was in normal sinus rhythm during the exam. The heart rate ranged between 68-78 bpm during the study. Left Ventricle: The left ventricle is normal in size and wall thickness. Left ventricular systolic function is normal without focal wall motion abnormalities. The ejection fraction is estimated to be 60-65%. Diastolic parameters suggest probable normal left ventricular diastolic function and normal filling pressures. Right Ventricle: The right ventricle is normal in size and function. Atria: Borderline left atrial enlargement. Right atrial size is normal. The interatrial septum is intact with no evidence for an atrial septal defect. Mitral Valve: The mitral valve is normal in structure and function. There is no mitral regurgitation noted. Aortic Valve: The aortic valve is trileaflet. The aortic valve opens well. There is no aortic valve stenosis. No aortic regurgitation is present. Tricuspid Valve: The tricuspid valve is normal in structure and function. There is mild tricuspid regurgitation. The right ventricular systolic pressure is estimated to be at least 30 mmHg based on an estimated right atrial pressure of 8 mm Hg. Pulmonic Valve: The pulmonic valve is normal in structure and function. There is no pulmonic valvular regurgitation. There is no significant valvular heart disease. Great Vessels: The aortic root is normal size. The ascending aorta is normal in size. The IVC is dilated (diameter is greater than 2.1 cm) yet it collapses greater than 50% with a sniff. This suggests a right atrial pressure of 8 mm Hg. Pericardium/ Pleura There is no pericardial effusion. There has been no significant change since the previous study. MMode/2D Measurements & Calculations LVIDd: 5.3 cm LVOT diam: 2.5 cm LVIDs: 3.6 cm Ao root diam: 3.3 cm FS: 32.6 % Ao Arch Diam (Prox Trans): 3.1 cm EPSS: 0.61 cm IVSd: 0.82 cm LVPWd: 0.79 cm LV vickers. diameter/BSA (cm/m^2): 2.8 LV sys. diameter/BSA (cm/m^2): 1.9 LA A2 area: 21.7 cm2 RA long axis: 4.7 cm LA A4 area: 17.0 cm2 RA area: 14.5 cm2 LA length (vol): 4.9 cm RA vol: 38.0 ml LA vol: 64.5 ml RA : 20.2 ml/m2 LA vol index: 34.3 ml/m2 IVC diam: 2.2 cm RVD1 (basal): 3.5 cm TAPSE: 2.0 cm Doppler Measurements & Calculations Ao V2 max: 134.6 cm/sec LVOT Max Matthew: 112.5 cm/sec Ao V2 mean: 87.0 cm/sec LV V1 max P.1 mmHg Ao max P.2 mmHg LV V1 VTI: 24.7 cm Ao mean P.5 mmHg VIET(I,D): 4.5 cm2 Ao V2 VTI: 27.7 cm VIET(V,D): 4.2 cm2 sev ratio: 0.89 VIET indexed to BSA (cm^2/m^2): 2.4 MV E max matthew: 59.7 cm/sec TR max matthew: 232.8 cm/sec MV A max matthew: 55.9 cm/sec TR max P.7 mmHg MV E/A: 1.1 PA V2 max: 102.0 cm/sec Med Peak E' Matthew: 10.6 cm/sec PA V2 mean: 68.3 cm/sec E/E' med: 5.6 PA mean P.2 mmHg Lat Peak E' Matthew: 16.7 cm/sec PA Accel Time: 0.14 sec E/E' lat: 3.6 E/e' average: 4.6 MV dec time: 0.23 sec SV(LVOT): 123.9 ml Reading Physician:12:40 PM
[2020-04-16] MEDS: COLCHICINE 0.6 MG TABLET PO (06:56)
--- NOTE | 2020-04-16 07:51 | PC.NURSE ---
pt reports, chest discomfort onset at 11pm last night, worsen at 2am, increase in pain, with shortness of breath and dyspneic on exertion. denies fever,vomiting,diarrhea, denies injuries or dental works.
[2020-04-16 09:40] LABS: C-Reactive Protein Quant < 0.5 mg/dL (<1.0)
[2020-04-16 09:43] LABS: Erythrocyte Sedimentation Rate 1 MM/HR (0-15)
[2020-04-16 09:49] LABS: Troponin I < 0.012 ng/mL (0.01-0.034)
== END 2020-04-16 13:01 | disposition home or self-care (01) ==
PROVIDERS: Emergency Medicine; Emergency Provider Emergency Medicine; PCP Physician Assistant
DX: I31.9 Disease of pericardium, unspecified (principal); R07.89 Other chest pain
CPT/HCPCS: 36415; 71045; 71275; 80053; 82550; 82553; 83690; 84484; 85025; 85379; 85651; 86140; 93005; 93306; 96361; 96374; 99285; J1885; Q9967

== ENCOUNTER → 2020-07-25 08:57 | Outpatient (CLI) | payer OTHER, SELFPAY ==
[2020-07-25 10:56] LABS: Creatinine Urine Random 294.2 mg/dL
[2020-07-25 11:02] LABS: Microalbumi Creatinin Ratio Ur 4.4 ug/mg CR (<30); Microalbumin Urine Random 1.3 mg/dL (0-1.6)
[2020-07-25 11:03] LABS: Alanine Aminotransferase 41 IU/L (<50); Albumin 5.1 g/dL (3.5-5.0); Alkaline Phosphatase 48 U/L (38-126); Aspartate Aminotransferase 45 IU/L (17-59); BUN Creatinine Ratio 15.1 (6-22); Bilirubin Total 3.2 mg/dL (0.2-1.3); Blood Urea Nitrogen 16 mg/dL (9-20); Calcium 9.7 mg/dL (8.4-10.2); Carbon Dioxide 29 mmol/L (22-32); Chloride 98 mmol/L (98-107); Cholesterol 211 mg/dL (140-199); Estimated Glomerular Filt Rate > 60.0 mL/min (>60); Globulin 2.5 g/dL (1.7-4.1); Glucose 90 mg/dL (70-100); HDL Cholesterol 77 mg/dL (40-60); HEMOLYSIS < 15 (0-50); LDL Cholesterol Calculated 122 mg/dL (<100); Potassium 4.5 mmol/L (3.4-5.1); Sodium 136 mmol/L (137-145); Total Protein 7.6 g/dL (6.3-8.2); Triglycerides 59 mg/dL (35-150)
[2020-07-25 11:35] LABS: Thyroid Stimulating Hormone 1.32 uIU/mL (0.47-4.68)
[2020-07-26 17:39] LABS: Bilirubin Direct 0.5 mg/dL (0.0-0.4)
== END ==
PROVIDERS: PCP Student in an Organized Health Care Education/Training Program; Referring Provider Student in an Organized Health Care Education/Training Program; Visit Provider Student in an Organized Health Care Education/Training Program
DX: E03.9 Hypothyroidism, unspecified (principal); I10 Essential (primary) hypertension; R94.5 Abnormal results of liver function studies
CPT/HCPCS: 36415; 80053; 80061; 82043; 82248; 82570; 84443

== ENCOUNTER → 2020-09-26 04:23 | Outpatient (CLI) | payer OTHER, SELFPAY | PROVIDERS: PCP Student in an Organized Health Care Education/Training Program; Referring Provider Internal Medicine; Visit Provider Internal Medicine | DX: Z23 Encounter for immunization (principal) | CPT/HCPCS: 90471; 90686 ==

== ENCOUNTER → 2020-09-30 12:01 | Outpatient (CLI) | payer OTHER, SELFPAY ==
[2020-09-30 12:48] LABS: COVID19 -Nasal RAPID Negative (Negative)
== END ==
PROVIDERS: PCP Student in an Organized Health Care Education/Training Program; Visit Provider Physician Assistant
DX: Z11.59 Encounter for screening for other viral diseases (principal)
CPT/HCPCS: 87635

== ENCOUNTER → 2020-11-28 09:24 | Outpatient (CLI) | payer OTHER, SELFPAY ==
[2020-11-28] MEDS: COVID-19 VACC(MODERNA-1)/PF 100 MCG/0.5 ML VIAL IM (09:35)
== END ==
PROVIDERS: PCP Student in an Organized Health Care Education/Training Program; Visit Provider Internal Medicine
DX: Z23 Encounter for immunization (principal)
CPT/HCPCS: 0011A; 91301

== ENCOUNTER → 2020-12-25 09:22 | Outpatient (CLI) | payer OTHER, SELFPAY ==
[2020-12-25] MEDS: COVID-19 VACC #2, MRNA(MOD) 100 MCG/0.5 ML VIAL IM (09:23)
== END ==
PROVIDERS: PCP Student in an Organized Health Care Education/Training Program; Visit Provider Internal Medicine
DX: Z23 Encounter for immunization (principal)
CPT/HCPCS: 0012A; 91301

== ENCOUNTER → 2021-06-06 09:10 | Outpatient (CLI) | payer OTHER, SELFPAY ==
[2021-06-06 09:34] LABS: Add Manual Diff / Slide Review NO; Basophils Absolute Auto 0 /uL (0-100); Basophils Percent Auto 0.4 % (0-2); Eosinophils Absolute Auto 100 /uL (0-450); Eosinophils Percent Auto 0.7 % (2-4); Hematocrit 46.6 % (41-53); Hemoglobin 16.3 g/dL (13.5-17.5); Lymphocytes Absolute Auto 1000 /uL (1100-4500); Lymphocytes Percent Auto 12.3 % (25-40); Mean Corpuscular Hemoglobin 32.9 PG (26-34); Mean Corpuscular Volume 93.9 fL (80-100); Monocytes Absolute Auto 600 /uL (0-900); Neutrophils Absolute Auto 6600 /uL (1500-7000); Neutrophils Percent Auto 79.6 % (50-75); Platelet Count 175 X10^3/uL (150-400); Red Blood Cell Count 4.96 X10^6/uL (4.5-5.9); Red Cell Distribution Width 12.3 % (11.6-14.8); White Blood Cell Count 8.2 X10^3/uL (4.5-11.0)
[2021-06-06 09:45] LABS: Alanine Aminotransferase 28 IU/L (<50); Albumin 4.6 g/dL (3.5-5.0); Albumin Globulin Ratio 1.8 (1.0-2.8); Alkaline Phosphatase 42 U/L (38-126); Aspartate Aminotransferase 40 IU/L (17-59); BUN Creatinine Ratio 21.4 (6-22); Bilirubin Total 2.1 mg/dL (0.2-1.3); Blood Urea Nitrogen 21 mg/dL (9-20); Calcium 9.6 mg/dL (8.4-10.2); Carbon Dioxide 30 mmol/L (22-32); Chloride 102 mmol/L (98-107); Creatine Kinase 278 U/L (55-170); Estimated Glomerular Filt Rate > 60.0 mL/min (>60); Globulin 2.6 g/dL (1.7-4.1); Glucose 102 mg/dL (70-100); HEMOLYSIS < 15 (0-50); Potassium 4.2 mmol/L (3.4-5.1); Sodium 138 mmol/L (137-145); Total Protein 7.2 g/dL (6.3-8.2)
== END ==
PROVIDERS: PCP Student in an Organized Health Care Education/Training Program; Referring Provider Physician Assistant; Visit Provider Physician Assistant
DX: R10.9 Unspecified abdominal pain (principal); R31.9 Hematuria, unspecified
CPT/HCPCS: 36415; 80053; 82550; 85025; 87086

== ENCOUNTER → 2021-06-06 09:37 | Outpatient (CLI) | payer OTHER, SELFPAY ==
--- NOTE | 2021-06-06 09:38 | DI.CT.S_ITS ---
PROCEDURE: CT ABDOMEN PELVIS WO/W CON INDICATIONS: flank pain and back pain TECHNIQUE: Optional 5 mm thick noncontrast images acquired from the diaphragm to the symphysis pubis. After the administration of intravenous contrast, 5 mm thick images acquired from the diaphragm to the symphysis pubis after a 10-minute delay. 2 mm thick coronal and sagittal reformats were then performed of the kidneys and ureters. For radiation dose reduction, the following was used: automated exposure control, adjustment of mA and/or kV according to patient size. COMPARISON: [facility], MRI LOWER EXT. JOINT W/O CONTRAST, 11/05/2006, 11:28. [facility], RG, CT ABDOMEN/PELVIS WITH CONTRAST, 03/17/2006, 13:59. [facility], CT, CT ANGIO CHEST PE PROTOCOL, 04/16/2020, 4:16. FINDINGS: Image quality: Excellent. Lung bases: Lung bases are clear. Heart size is normal. Urinary system: Both kidneys are normal in size, without hydronephrosis. Punctate nonobstructing kidney stone in the right kidney inferior pole, (2/31). No perinephric fat stranding. There is normal bilateral renal enhancement. Renal calyces appear normal in morphology when filled with contrast. Opacified portions of both ureters demonstrate normal caliber. No filling defect within the well opacified ureters. Bladder wall thickness is normal. No calcified bladder stones. Other solid organs: Liver is normal in size and enhancement. Small hepatic cysts. Gallbladder is unremarkable. Biliary system is non dilated. Pancreas enhances normally. Spleen is normal in size and enhancement. No adrenal nodules. Peritoneum and bowel: Bowel loops demonstrate normal wall thickness and caliber. Normal appendix. No free fluid or air. Nodes and vessels: No retroperitoneal or mesenteric adenopathy by size criteria. Aorta and inferior vena cava are normal in size. Abdominal wall: No ventral hernias. Pelvis: A small calcification right paramedian prostate. No pathologic free pelvic fluid. No inguinal hernias or adenopathy. Bones: Lucency in the right sacrum. This is not seen on the CT from 2005. However, on the left hip pelvic MRI there is a T2 hyperintense focus seen in this region in 2006. A few small bone islands. Bilateral hip DJD demonstrable by subchondral cystic change and acetabular roof sclerosis. No vertebral body compression fractures. IMPRESSION: 1. No hydronephrosis. No kidney stones. 2. No solid renal mass. No upper urinary tract filling defect. 3. Lucent lesion in the right sacrum which is new compared to 2006. Etiology is uncertain. Both benign and malignant etiologies are in the differential diagnosis. This could be further evaluated with pelvic MRI with IV contrast. 4. Early onset degenerative change of the hips. Dictated by: Saleem Reece M.D. on 06/06/2021 at 10:37 Approved by: Saleem Reece M.D. on 06/06/2021 at 10:59
== END ==
PROVIDERS: PCP Student in an Organized Health Care Education/Training Program; Referring Provider Physician Assistant; Visit Provider Physician Assistant
DX: R10.9 Unspecified abdominal pain (principal); R31.9 Hematuria, unspecified; M89.9 Disorder of bone, unspecified; M54.9 Dorsalgia, unspecified
CPT/HCPCS: 36415; 74178; 80053; 82550; 85025; 87086

== ENCOUNTER → 2021-06-13 10:03 | Outpatient (CLI) | payer OTHER, SELFPAY ==
[2021-06-13 10:12] LABS: Bacteria Urine None Seen; WBC Urine None Seen (0-5/HPF)
[2021-06-13 11:39] LABS: Appearance Urine UA CLEAR; Bilirubin Urine UA NEGATIVE (NEGATIVE); Color Urine UA YELLOW; Glucose Urine UA NEGATIVE (Negative); Ketones Urine UA NEGATIVE (NEGATIVE); Leukocyte Esterase Urine UA NEGATIVE (NEGATIVE); Nitrite Urine UA NEGATIVE (Negative); Occult Blood Urine UA 1+ (Negative); Protein Urine UA NEGATIVE (Negative); Specific Gravity Urine UA 1.015 (1.000-1.035); Urobilinogen Urine UA 0.2 E.U./dL (0.2)
[2021-06-13 12:05] LABS: Amorphous Sediment Urine 1+; Culture Indicated Urine Cult Not Indicated; RBC Urine 0-1/HPF (0-5/HPF)
== END ==
PROVIDERS: PCP Student in an Organized Health Care Education/Training Program; Referring Provider Student in an Organized Health Care Education/Training Program; Visit Provider Student in an Organized Health Care Education/Training Program
DX: R31.9 Hematuria, unspecified (principal)
CPT/HCPCS: 81001

== ENCOUNTER → 2021-06-24 06:21 | Outpatient (CLI) | payer OTHER, SELFPAY ==
--- NOTE | 2021-06-24 | DI.MRI.S_ITS ---
PROCEDURE: MR PELVIS WO/W CON COMPARISON: [facility], CT, CT ABDOMEN PELVIS WO/W CON, 06/06/2021, 9:45. INDICATIONS: RE-EVAL SACRAL LUCENCY SEEN ON ABD CT MAY 2021 FINDINGS: There is an ovoid marrow space abnormality centered just to the right of midline within the sacrum corresponding to the area of mildly heterogeneous lucency in the same region on CT scanning recently performed. This measures up to 2.4 cm transverse, 1.8 cm craniocaudad, and 1.9 cm in maximal AP dimension. This structure has mildly elevated fluid signal, and is not associated with an additional similar abnormality elsewhere. IMPRESSION: The ovoid lucency discussed above within the right paramedian sacrum is relatively lucent on CT scanning, mildly heterogeneous, shows internal contrast enhancement on MR scanning and is mildly elevated in fluid signal when compared to normal appearing marrow elsewhere. No additional lesion is seen. Nuclear medicine bone scan is recommended to determine metabolic activity of this structure and also to assay the marrow space elsewhere. This abnormality appears accessible for percutaneous posterior approach bone marrow biopsy if clinically warranted. A judgment related to biopsy should be made after bone scanning is obtained. Dictated by: Truong Laureano M.D. on 06/24/2021 at 8:16 Approved by: Truong Laureano M.D. on 06/24/2021 at 8:28
--- NOTE | 2021-06-24 06:24 | DI.MRI.S_ITS ---
PROCEDURE: MR ABDOMEN WO/W CON INDICATIONS: Re-eval sacral lucency seen on abd CT May 2021 TECHNIQUE: Coronal HASTE, axial 2D FLASH in- and [id number]; axial breath-hold T2 FSE. Dynamic axial VIBE during the administration of contrast; post-contrast coronal VIBE or 2D FLASH with fat saturation from the hepatic dome to the iliac crests. Optional diffusion weighted imaging and ADC may be performed. COMPARISON: [facility], CT, CT ABDOMEN PELVIS WO/W CON, 06/06/2021, 9:45. FINDINGS: Image quality: Excellent. Lung bases: No basal pleural effusions. Heart size is normal. Solid organs: Liver is normal in size and enhancement. The liver contains a 1 cm posterior mildly lobulated cyst, series 35, image 40. . Gallbladder appears normal. Biliary system is non dilated. Pancreas is normal in morphology. Spleen is normal in size and enhancement. No adrenal nodules. Both kidneys demonstrate normal size and enhancement, without hydronephrosis. Nodes and vessels: No retroperitoneal or mesenteric adenopathy by size criteria. Aorta and inferior vena cava are normal in size. Bowel and peritoneum: Unenhanced bowel loops are normal in caliber. No free fluid. Bones and soft tissues: No ventral hernias. Bone marrow is normal in overall signal. IMPRESSION: No lesion within the visualized abdomen or upper pelvis is seen. Please refer to pelvic MRI also obtained today optimized for sacral bone lesion evaluation. No bone lesion seen throughout the abdominal portion of the study. Nuclear medicine bone scan has been recommended for survey imaging. Dictated by: Truong Laureano M.D. on 06/24/2021 at 8:28 Approved by: Truong Laureano M.D. on 06/24/2021 at 8:31
== END ==
PROVIDERS: PCP Student in an Organized Health Care Education/Training Program; Referring Provider Student in an Organized Health Care Education/Training Program; Visit Provider Student in an Organized Health Care Education/Training Program
DX: R93.5 Abnormal findings on diagnostic imaging of other abdominal regions, including retroperitoneum (principal); M89.8X5 Other specified disorders of bone, thigh; R31.9 Hematuria, unspecified
CPT/HCPCS: 72197; 74183; A9579

== ENCOUNTER → 2021-07-01 09:32 | Outpatient (CLI) | payer OTHER, SELFPAY ==
--- NOTE | 2021-07-01 09:33 | DI.NM.S_ITS ---
PROCEDURE: NM BONE SCAN WHOLE BODY RADIOPHARMACEUTICAL: 20.5 mCi Tc-99m MDP IV. INDICATIONS: Evaluate sacral lucency. Check for other, similar lesions TECHNIQUE: Delayed whole-body scintigrams were obtained approximately 3-4 hours after intravenous injection of radiotracer. Anterior and posterior views were acquired from vertex to feet. Additional left and right oblique views of the pelvis were obtained. COMPARISON: [facility], MR, MR PELVIS WO/W CON, 06/24/2021, 6:14. [facility], CT, CT ABDOMEN PELVIS WO/W CON, 06/06/2021, 9:45. FINDINGS: No areas of relative intense radiotracer uptake identified in the osseous skeleton. Increased radiotracer uptake identified in the shoulders bilaterally, the left ankle in the mid feet bilaterally compatible with osteoarthritis. No abnormal radiotracer uptake identified in the sacrum. No areas of photopenia identified in the sacrum. No abnormal soft tissue uptake. Activity in the kidneys is normal and symmetric. IMPRESSION: No abnormal radiotracer uptake identified in the sacrum that would correspond to abnormality identified by prior CT scan obtained June 06, 2021. Finding could reflect benign etiology of the lesion versus absence of osteoblastic activity. Dictated by: Lou Shelby MD, PhD on 07/01/2021 at 15:42 Approved by: Lou Shelby MD, PhD on 07/01/2021 at 15:47
== END ==
PROVIDERS: PCP Student in an Organized Health Care Education/Training Program; Referring Provider Student in an Organized Health Care Education/Training Program; Visit Provider Student in an Organized Health Care Education/Training Program
DX: M89.8X5 Other specified disorders of bone, thigh (principal)
CPT/HCPCS: 78306; A9503

== ENCOUNTER → 2021-08-12 13:26 | Outpatient (CLI) | payer OTHER, SELFPAY ==
[2021-08-12 14:03] LABS: Appearance Urine UA CLEAR; Bilirubin Urine UA NEGATIVE (NEGATIVE); Color Urine UA YELLOW; Glucose Urine UA NEGATIVE (Negative); Ketones Urine UA NEGATIVE (NEGATIVE); Leukocyte Esterase Urine UA NEGATIVE (NEGATIVE); Nitrite Urine UA NEGATIVE (Negative); Occult Blood Urine UA 2+ (Negative); Protein Urine UA NEGATIVE (Negative); Specific Gravity Urine UA 1.025 (1.000-1.035); Urobilinogen Urine UA 0.2 E.U./dL (0.2)
[2021-08-12 14:23] LABS: Bacteria Urine None Seen; Culture Indicated Urine Cult Not Indicated; RBC Urine 1-5/HPF (0-5/HPF); Squamous Epithelial Cell Urine 0-1 /HPF (0-5/HPF); WBC Urine 0-1/HPF (0-5/HPF)
== END ==
PROVIDERS: PCP Student in an Organized Health Care Education/Training Program; Referring Provider Student in an Organized Health Care Education/Training Program; Visit Provider Student in an Organized Health Care Education/Training Program
DX: R31.9 Hematuria, unspecified (principal)
CPT/HCPCS: 81001

== ENCOUNTER → 2021-10-11 08:08 | Outpatient (CLI) | payer OTHER, SELFPAY ==
--- NOTE | 2021-10-11 08:09 | DI.RAD.S_ITS ---
PROCEDURE: XR KUB INDICATIONS: kidney stone TECHNIQUE: One view of the abdomen acquired. COMPARISON: [facility], CT, CT ABDOMEN PELVIS WO/W CON, 06/06/2021, 9:45. FINDINGS: Surgical changes and devices: None. Bowel: Bowel gas pattern is normal. Soft tissues: No suspicious abdominal calcifications. Visualized solid organ contours appear normal in size. Bones: No suspicious bony lesions. IMPRESSION: No radiographic evidence of renal calculus. Nonobstructive bowel gas pattern Approved by: Edgar Burleson M.D. on 10/11/2021 at 8:06
[2021-10-11 09:11] LABS: Calcium 9.7 mg/dL (8.4-10.2); Uric Acid 3.6 mg/dL (3.5-8.5)
[2021-10-12 11:57] LABS: Parathyroid Hormone Int 36 pg/mL (15-65)
== END ==
PROVIDERS: PCP Student in an Organized Health Care Education/Training Program; Referring Provider Specialist; Visit Provider Specialist
DX: N20.0 Calculus of kidney (principal)
CPT/HCPCS: 36415; 74018; 82310; 83970; 84550

== ENCOUNTER → 2021-10-16 15:10 | Outpatient (CLI) | payer OTHER, SELFPAY | PROVIDERS: PCP Student in an Organized Health Care Education/Training Program; Referring Provider Internal Medicine; Visit Provider Internal Medicine | DX: Z23 Encounter for immunization (principal) | CPT/HCPCS: 90471; 90686 ==

== ENCOUNTER → 2021-10-17 08:38 | Outpatient (CLI) | payer OTHER, SELFPAY ==
[2021-10-17] MEDS: COVID-19 VACC #3, MRNA(MOD) 50 MCG/0.25 ML VIAL IM (08:46)
== END ==
PROVIDERS: PCP Student in an Organized Health Care Education/Training Program; Visit Provider Internal Medicine
DX: Z23 Encounter for immunization (principal)
CPT/HCPCS: 0013A; 91301

== ENCOUNTER → 2021-10-27 09:46 | Outpatient (CLI) | payer OTHER, SELFPAY ==
[2021-10-27 11:09] LABS: Semen Sperm Prescence Post-Vas Absent (ABSENT)
== END ==
PROVIDERS: PCP Student in an Organized Health Care Education/Training Program; Referring Provider Specialist; Visit Provider Specialist
DX: Z98.52 Vasectomy status (principal)
CPT/HCPCS: 89321

== ENCOUNTER → 2022-09-01 06:51 | Outpatient (CLI) | payer OTHER, SELFPAY ==
[2022-09-01 09:09] LABS: BUN Creatinine Ratio 12.1 (6-22); Blood Urea Nitrogen 11 mg/dL (9-20); Calcium 9.1 mg/dL (8.4-10.2); Carbon Dioxide 29 mmol/L (22-32); Chloride 100 mmol/L (98-107); Estimated Glomerular Filt Rate > 60 mL/min (>60); Glucose 94 mg/dL (70-100); HEMOLYSIS < 15 (0-50); Potassium 4.5 mmol/L (3.4-5.1); Sodium 137 mmol/L (137-145)
[2022-09-01 09:38] LABS: TSH w/ Reflex to FT4 0.28 uIU/mL (0.47-4.68)
== END ==
PROVIDERS: PCP Student in an Organized Health Care Education/Training Program; Referring Provider Student in an Organized Health Care Education/Training Program; Visit Provider Student in an Organized Health Care Education/Training Program
DX: E03.9 Hypothyroidism, unspecified (principal); I10 Essential (primary) hypertension
CPT/HCPCS: 36415; 80048; 84439; 84443

== ENCOUNTER → 2022-10-16 15:26 | Outpatient (CLI) | payer OTHER, SELFPAY | PROVIDERS: PCP Student in an Organized Health Care Education/Training Program; Referring Provider Internal Medicine; Visit Provider Internal Medicine | DX: Z23 Encounter for immunization (principal) | CPT/HCPCS: 90471; 90686 ==

== ENCOUNTER 2023-06-07 03:06 | Emergency (ER) | payer OTHER, SELFPAY ==
[2023-06-07 03:15] VITALS: BP 166/95; PULSE 69; RESP 16; TEMP 36.2; O2SAT 100; BMI 25.8
--- NOTE | 2023-06-07 03:20 | ED_ITS ---
HPI - General Adult General Chief complaint: Chest Pain Stated complaint: chest pain Time Seen by Provider: 06/07/23 03:13 Source: patient Mode of arrival: Ambulatory Limitations: no limitations History of Present Illness HPI narrative: Patient is a 43-year-old male. He does have history of thoracic outlet syndrome and also pericarditis. He states he went to bed last night feeling fine. He woke up shortly before coming here to the emergency department with pressure in his chest and also some back discomfort. He is not having any problems breathing. No lightheadedness. No abdominal pain. No nausea or vomiting. He states this does feel similar to his prior episode of pericarditis but the last time he had some significant problems breathing and he does not have any of that now. He is not have any tingling down into his arms. No interventions prior to arrival. Related Data Previous Rx's Medication Instructions Recorded Synthroid 150 mcg tablet 150 mcg PO QAM #90 tabs 09/07/22 (levothyroxine) amlodipine 5 mg tablet (Norvasc) 5 mg PO QDAY #90 tabs 09/07/22 colchicine 0.6 mg tablet (Colcrys) 0.6 mg PO BID #60 tabs 06/07/23 Allergies Allergy/AdvReac Type Severity Reaction Status Date / Time No Known Drug Allergies Allergy Verified 06/09/22 14:28 Review of Systems Constitutional Constitutional: Reports system reviewed and no additional complaints, except as documented Cardiovascular Cardiovascular: Reports system reviewed and no additional complaints, except as documented Respiratory Respiratory: Reports system reviewed and no additional complaints, except as documented Gastrointestinal Gastrointestinal: Reports system reviewed and no additional complaints, except as documented Hematologic/Lymphatic On Anticoagulants: No Patient History Medical History Asthma Eczema Gilbert syndrome History of nephrolithiasis HTN (hypertension) Lytic bone lesion of hip Thyroid disease Surgical History H/O circumcision Family History Grandfather Cancer Grandfather CVA (cerebral vascular accident) Mother Eczema Father Kidney stone Social History marital status: number of children: 1 occupational status: employed 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 leisure activities: exercise Smoking Status: Never smoker second hand exposure: No alcohol intake: current (Beer about 4x a week) substance use type: does not use caffeine: No frequency: 3-4 times per week duration: 45-60 minutes/day Smoking Status: Never smoker alcohol intake frequency: 0-2 drinks per day Substance Use Type: does not use Exam Initial Vital Signs Initial Vital Signs: Vital Signs Temperature 97.1 F L 06/07/23 03:15 Pulse Rate 69 06/07/23 03:15 Respiratory Rate 16 06/07/23 03:15 Blood Pressure 166/95 H 06/07/23 03:15 Pulse Oximetry 100 06/07/23 03:15 Oxygen Delivery Method Room Air 06/07/23 03:15 Const General: cooperative, comfortable and No ill appearing HENMT Head: normal to inspection and normocephalic Resp Effort & Inspection: normal respiratory effort Auscultation: clear to auscultation bilaterally Cardio Rate: regular rate Rhythm: regular rhythm Heart Sounds: no murmurs and no rubs GI Inspection: normal to inspection Palpation: soft, No firm and No tender Back/Spine/Pelvis Thoracic/Lumbar Spine: No paraspinal tenderness and No thoracic spinal tenderness Skin General: no rashes or lesions noted Neuro General: patient alert, patient awake, patient oriented x3 and moves all extre mities Extrem General: No edema Scores HEART Score Heart Score history: Slightly Suspicious Heart Score EKG: Normal Heart Score Age: < 45 years old Heart Score risk factors: 1-2 risk factors Heart Score troponin: < or = to normal limit Heart Score Total: 1 PERC Score Age greater than or equal to 50 years: No Heart rate greater than or equal to 100 bpm: No Room Air O2 Sat less than 95%: No Unilateral leg swelling: No Recent trauma or surgery: No Hemoptysis: No Prior PE or DVT: No Hormone Use: No Total PERC Score: 0 Course Orders Ordered: ED Orders 06/07/23 03:10 C-Reactive Protein Quant Stat Complete Blood Count AUTO DIFF Stat Comprehensive Metabolic Panel Stat Erythrocyte Sedimentation Rate Stat Lipase Stat Magnesium Stat Troponin & CK Cardiac Panel Stat 06/07/23 03:22 XR chest 1V Stat EKG-12 Lead Stat Discontinued Medications Ketorolac Tromethamine (Ketorolac 30 Mg/Ml Vial) 30 mg IV NOW ONE Stop: 06/07/23 03:53 Last Admin: 06/07/23 03:59 Dose: 30 mg Documented By: EVITA Vital Signs Vital signs: Vital Signs - 8 hr 06/07/23 03:15 06/07/23 03:26 06/07/23 03:30 Temperature 97.1 F L Pulse Rate 69 56 L Respiratory Rate 16 10 L Blood Pressure 166/95 H 144/83 H Pulse Oximetry 100 99 Oxygen Delivery Method Room Air 06/07/23 03:30 06/07/23 04:00 06/07/23 04:00 Temperature Pulse Rate 55 L 57 L Respiratory Rate 15 13 Blood Pressure 141/83 H Pulse Oximetry 98 99 Oxygen Delivery Method Room Air Medical Decision Making Medical Records Medical records reviewed: Yes I reviewed the patient's medical records. Lab Data Lab results reviewed: Yes I reviewed the patient's lab results. 06/07/23 03:10 06/07/23 03:10 Labs: Lab Results 06/07/23 06/07/23 06/07/23 Range/Units 03:10 03:10 03:10 WBC 6.1 (4.5-11.0) X10^3/uL RBC 4.89 (4.5-5.9) X10^6/uL Hgb 16.4 (13.5-17.5) g/dL Hct 46.2 (41-53) % MCV 94.5 (80-100) fL MCH 33.5 (26-34) PG MCHC 35.5 (30-36) % RDW 12.7 (11.6-14.8) % Plt Count 186 (150-400) X10^3/uL Neut % (Auto) 55.1 (50-75) % Lymph % (Auto) 30.4 (25-40) % [place] % (Auto) 9.1 (3-14) % Eos % (Auto) 5.0 H (2-4) % Baso % (Auto) 0.4 (0-2) % Neut # (Auto) 3400 (7521-6247) /uL Lymph # (Auto) 1900 (2470-1227) /uL [place] # (Auto) 600 (0-900) /uL Eos # (Auto) 300 (0-450) /uL Baso # (Auto) 0 (0-100) /uL ESR 1 (0-15) MM/HR Sodium 137 (137-145) mmol/L Potassium 3.8 (3.4-5.1) mmol/L Chloride 101 (98-107) mmol/L Carbon Dioxide 28 (22-32) mmol/L BUN 11 (9-20) mg/dL Creatinine 0.95 (0.66-1.25) mg/dL Estimated GFR > 60 (>60) mL/min BUN/Creatinine Ratio 11.6 (6-22) Glucose 100 (70-100) mg/dL Calcium 9.1 (8.4-10.2) mg/dL Magnesium 2.3 (1.6-2.3) mg/dL Total Bilirubin 2.3 H (0.2-1.3) mg/dL AST 37 (17-59) IU/L ALT 28 (<50) IU/L Alkaline Phosphatase 51 (38-126) U/L Total Creatine Kinase 184 H (55-170) U/L Troponin I < 0.012 (0.01-0.034) ng/mL C-Reactive Protein < 0.5 (<1.0) mg/dL Total Protein 7.4 (6.3-8.2) g/dL Albumin 4.6 (3.5-5.0) g/dL Globulin 2.8 (1.7-4.1) g/dL Albumin/Globulin Ratio 1.6 (1.0-2.8) Lipase 108 (23-300) U/L Imaging Data Chest x-ray: Radiologist's Impression: No active cardiopulmonary pathology ECG Data Attestation: I personally reviewed and interpreted this ECG as follows: Interpretation: Sinus rhythm Ventricular rate is 61 Normal axis Normal QRS Normal QTC No ST T wave changes MDM Narrative Medical decision making narrative: Patient does have a pericarditis history however his white blood cell count is negative. His ESR and CRP are negative. He does not have an EKG that is consistent with pericarditis. Chest x-ray is unremarkable. He has a low risk heart score. His PERC score is negative. No signs of pneumonia. He is no abdominal tenderness. His LFTs and lipase are unremarkable. Patient is not hypoxic. I do have low suspicion for ACS. His symptoms could potentially be pericarditis as he has had pericarditis in the past he states this feels similar to that but his physical exam in his labs are not necessarily supportive of th is. No real improvement with Toradol. I had a long discussion with the patient and his regarding the symptoms. The plan will be is to give him a prescription for colchicine but he is going to hold on taking this for now. He will start taking the anti-inflammatories like what he had in the past. We also discussed him starting on a H2 delilah has potentially his symptoms are GI in origin and this will also protect his stomach for the anti-inflammatory use. Informed him that if his symptoms worsen or if you develop new symptoms that he needed to return to the emergency department. If his symptoms are not just improving over the next 24-48 hours he can start taking the colchicine. He was given return precautions. He expressed understanding and agreement. Discharge Plan Departure Patient Disposition: Home Clinical Impression: Atypical chest pain Instructions: DI for Atypical Chest Pain Activity Restrictions/Additional Instructions: I would start taking anti-inflammatories today like we discussed. I would also recommend that you start taking something to protect your stomach such as Pepcid/famotidine. You can purchase this [id number]. If your symptoms significantly worsen or you develop new symptoms you do need to return to the emergency department. If your symptoms have not improved over the next 24-48 hours you can consider starting the colchicine as directed. I recommend that you contact your primary doctor for follow-up. Prescriptions: New colchicine [Colcrys] 0.6 mg tablet 0.6 mg PO BID Qty: 60 0RF No Action levothyroxine [Synthroid] 150 mcg tablet 150 mcg PO QAM Qty: 90 2RF amlodipine [Norvasc] 5 mg tablet 5 mg PO QDAY Qty: 90 2RF Referrals: Abhijeet Lu MD [Primary Care Provider] - Stand Alone Forms: Patient Portal/API
--- NOTE | 2023-06-07 03:22 | DI.RAD.S_ITS ---
PROCEDURE: XR CHEST 1V INDICATIONS: chest pain TECHNIQUE: One view of the chest was acquired. COMPARISON: [facility], CR, XR CHEST 1V, 04/16/2020, 3:35. FINDINGS: Surgical changes and devices: None. Lungs and pleura: Lungs are clear. No pleural effusions or pneumothorax. Mediastinum: Mediastinal contours appear normal. Heart size is normal. Bones and chest wall: No suspicious bony lesions. Overlying soft tissues appear unremarkable. IMPRESSION: No acute cardiopulmonary abnormality. There is no significant discrepancy when compared to the overnight preliminary report. Approved by: Alex Harris M.D. on 06/07/2023 at 8:33
[2023-06-07 03:26] VITALS: PULSE 56; RESP 10; O2SAT 99
[2023-06-07 03:30] VITALS: BP 144/83; PULSE 55; RESP 15; O2SAT 98
[2023-06-07 03:31] LABS: Add Manual Diff / Slide Review NO; Basophils Absolute Auto 0 /uL (0-100); Basophils Percent Auto 0.4 % (0-2); Eosinophils Absolute Auto 300 /uL (0-450); Hematocrit 46.2 % (41-53); Hemoglobin 16.4 g/dL (13.5-17.5); Lymphocytes Absolute Auto 1900 /uL (1100-4500); Lymphocytes Percent Auto 30.4 % (25-40); Mean Corpuscular HGB Conc 35.5 % (30-36); Mean Corpuscular Hemoglobin 33.5 PG (26-34); Mean Corpuscular Volume 94.5 fL (80-100); Monocytes Absolute Auto 600 /uL (0-900); Monocytes Percent Auto 9.1 % (3-14); Neutrophils Absolute Auto 3400 /uL (1500-7000); Neutrophils Percent Auto 55.1 % (50-75); Platelet Count 186 X10^3/uL (150-400); Red Blood Cell Count 4.89 X10^6/uL (4.5-5.9); Red Cell Distribution Width 12.7 % (11.6-14.8); White Blood Cell Count 6.1 X10^3/uL (4.5-11.0)
[2023-06-07 03:33] LABS: Alanine Aminotransferase 28 IU/L (<50); Albumin 4.6 g/dL (3.5-5.0); Albumin Globulin Ratio 1.6 (1.0-2.8); Alkaline Phosphatase 51 U/L (38-126); Aspartate Aminotransferase 37 IU/L (17-59); BUN Creatinine Ratio 11.6 (6-22); Bilirubin Total 2.3 mg/dL (0.2-1.3); Blood Urea Nitrogen 11 mg/dL (9-20); Calcium 9.1 mg/dL (8.4-10.2); Carbon Dioxide 28 mmol/L (22-32); Chloride 101 mmol/L (98-107); Creatine Kinase 184 U/L (55-170); Estimated Glomerular Filt Rate > 60 mL/min (>60); Globulin 2.8 g/dL (1.7-4.1); Glucose 100 mg/dL (70-100); HEMOLYSIS 18 (0-50); Lipase 108 U/L (23-300); Potassium 3.8 mmol/L (3.4-5.1); Sodium 137 mmol/L (137-145); Total Protein 7.4 g/dL (6.3-8.2)
[2023-06-07 03:37] LABS: C-Reactive Protein Quant < 0.5 mg/dL (<1.0); Magnesium 2.3 mg/dL (1.6-2.3)
[2023-06-07 03:45] LABS: Troponin I < 0.012 ng/mL (0.01-0.034)
[2023-06-07] MEDS: KETOROLAC 30 MG/ML VIAL IV (03:59)
[2023-06-07 04:00] VITALS: BP 141/83; PULSE 57; RESP 13; O2SAT 99
[2023-06-07 04:15] LABS: Erythrocyte Sedimentation Rate 1 MM/HR (0-15)
[2023-06-07 04:30] VITALS: BP 140/77; PULSE 58; RESP 12; O2SAT 99
[2023-06-07 05:00] VITALS: BP 147/87; PULSE 61; RESP 15; O2SAT 98
== END 2023-06-07 05:23 | disposition home or self-care (01) ==
PROVIDERS: Emergency Provider Emergency Medicine; PCP Student in an Organized Health Care Education/Training Program
DX: R07.89 Other chest pain (principal)
CPT/HCPCS: 36415; 71045; 80053; 82550; 83690; 83735; 84484; 85025; 85651; 86140; 93005; 96374; 99284; J1885

== ENCOUNTER → 2023-08-25 08:21 | Outpatient (CLI) | payer OTHER, SELFPAY ==
[2023-08-25 09:07] LABS: Cholesterol 190 mg/dL (140-199); HDL Cholesterol 76 mg/dL (40-60); LDL Cholesterol Calculated 103 mg/dL (<100); Triglycerides 57 mg/dL (35-150)
[2023-08-25 09:35] LABS: TSH w/ Reflex to FT4 2.39 uIU/mL (0.47-4.68)
== END ==
PROVIDERS: PCP Family Medicine; Referring Provider Family Medicine; Visit Provider Family Medicine
DX: E03.9 Hypothyroidism, unspecified (principal); I10 Essential (primary) hypertension; E78.00 Pure hypercholesterolemia, unspecified
CPT/HCPCS: 36415; 80061; 84443

== ENCOUNTER → 2023-10-29 14:02 | Outpatient (CLI) | payer OTHER, SELFPAY | PROVIDERS: PCP Family Medicine; Referring Provider Family Medicine; Visit Provider Family Medicine | DX: Z23 Encounter for immunization (principal) | CPT/HCPCS: 90471; 90686 ==

== ENCOUNTER → 2024-09-15 | Outpatient (CLI) | payer OTHER, SELFPAY | PROVIDERS: PCP Family Medicine; Referring Provider Internal Medicine; Visit Provider Internal Medicine | DX: Z23 Encounter for immunization (principal) | CPT/HCPCS: 90471; 90656 ==

== ENCOUNTER → 2024-09-28 07:03 | Outpatient (CLI) | payer OTHER, SELFPAY ==
[2024-09-28 08:13] LABS: Add Manual Diff / Slide Review NO; Basophils Absolute Auto 0 /uL (0-100); Basophils Percent Auto 0.5 % (0-2); Eosinophils Absolute Auto 200 /uL (0-450); Eosinophils Percent Auto 4.8 % (2-4); Hematocrit 45.1 % (41-53); Hemoglobin 15.7 g/dL (13.5-17.5); Lymphocytes Absolute Auto 1300 /uL (1100-4500); Lymphocytes Percent Auto 30.9 % (25-40); Mean Corpuscular HGB Conc 34.9 % (30-36); Mean Corpuscular Hemoglobin 33.3 PG (26-34); Mean Corpuscular Volume 95.4 fL (80-100); Monocytes Absolute Auto 500 /uL (0-900); Monocytes Percent Auto 11.1 % (3-14); Neutrophils Absolute Auto 2300 /uL (1500-7000); Neutrophils Percent Auto 52.7 % (50-75); Platelet Count 187 X10^3/uL (150-400); Red Blood Cell Count 4.73 X10^6/uL (4.5-5.9); Red Cell Distribution Width 12.2 % (11.6-14.8); White Blood Cell Count 4.3 X10^3/uL (4.5-11.0)
[2024-09-28 08:43] LABS: Alanine Aminotransferase 33 IU/L (<50); Albumin 4.5 g/dL (3.5-5.0); Albumin Globulin Ratio 2.1 (1.0-2.8); Alkaline Phosphatase 41 U/L (38-126); Aspartate Aminotransferase 59 IU/L (17-59); Bilirubin Total 1.8 mg/dL (0.2-1.3); Blood Urea Nitrogen 14 mg/dL (9-20); Calcium 9.3 mg/dL (8.4-10.2); Carbon Dioxide 30 mmol/L (22-32); Chloride 102 mmol/L (98-107); Cholesterol 182 mg/dL (140-199); Estimated Glomerular Filt Rate > 60 mL/min (>60); Globulin 2.1 g/dL (1.7-4.1); Glucose 87 mg/dL (70-100); HDL Cholesterol 70 mg/dL (40-60); HEMOLYSIS < 15 (0-50); LDL Cholesterol Calculated 103 mg/dL (<100); Potassium 4.7 mmol/L (3.4-5.1); Sodium 137 mmol/L (137-145); Total Protein 6.6 g/dL (6.3-8.2); Triglycerides 45 mg/dL (35-150)
[2024-09-28 15:49] LABS: HIV 1 & 2 Ab/Ag 4th Gen Combo NEGATIVE (NEGATIVE); Hep C Virus Ab w/Reflex Quant NEGATIVE s/c (NEGATIVE)
== END ==
PROVIDERS: PCP Family Medicine; Referring Provider Family Medicine; Visit Provider Family Medicine
DX: I10 Essential (primary) hypertension (principal); E03.9 Hypothyroidism, unspecified; Z11.59 Encounter for screening for other viral diseases; Z11.4 Encounter for screening for human immunodeficiency virus [HIV]; E78.00 Pure hypercholesterolemia, unspecified; R21 Rash and other nonspecific skin eruption; H91.92 Unspecified hearing loss, left ear
CPT/HCPCS: 36415; 80053; 80061; 85025; 86803; 87389

== ENCOUNTER → 2024-10-17 10:08 | Outpatient (CLI) | payer OTHER, SELFPAY ==
[2024-10-17 11:27] LABS: TSH w/ Reflex to FT4 0.43 uIU/mL (0.47-4.68)
[2024-10-17 12:19] LABS: Free T4, Direct Thyroxine 1.16 ng/dL (0.78-2.19)
== END ==
PROVIDERS: PCP Family Medicine; Referring Provider Family Medicine; Visit Provider Family Medicine
DX: E03.9 Hypothyroidism, unspecified (principal)
CPT/HCPCS: 36415; 84439; 84443